=== PATIENT | female | born 1990 | race Native Hawaiian/Other Pacific Islander ===

== ENCOUNTER 2019-01-04 14:10 | Emergency (ER) | payer SELFPAY ==
[~2019-01-04] VITALS: Ht 180.3 cm; Wt 72.6 kg
[2019-01-04 14:13] VITALS: BP 134/69
[2019-01-04] MEDS ORDERED: SODIUM CHLORIDE 0.9% 1,000 ML IVB ONE (14:54)
[2019-01-04] MEDS ORDERED: ONDANSETRON HCL 4 MG/2 ML VIAL IV ONE (15:00)
[2019-01-04] MEDS ORDERED: FAMOTIDINE (10MG/ML) 2ML VL IV ONE (15:00)
[2019-01-04 15:27] LABS: Basophils # (auto) 0.1 uL; Basophils % (auto) 0.8 % (0.0-2.0); Eosinophils # (auto) 0 uL; Eosinophils % (auto) 0.2 % (0.0-7.0); Hemoglobin 15.2 g/dL (12.2-16.2); Lymphocytes # (auto) 1.2 uL; Mean Corpuscular Hemoglobin 29.3 pg (28.0-32.0); Mean Corpuscular Hgb Conc. 33.1 g/dL (32.0-36.0); Mean Corpuscular Volume 88.6 fL (80.0-100.0); Monocytes # (auto) 1.1 uL; Monocytes % (auto) 7.7 % (0.0-12.0); Neutrophils % (auto) 83.3 % (37.0-80.0); Platelet Count (auto) 237 10^3/uL (140-450); Red Blood Cells 5.19 10^6/uL (4.0-5.20); Red Cell Distribution Width 12.9 % (11.8-14.3); White Blood Cell 14.4 10^3/uL (4.4-10.8)
[2019-01-04 15:45] LABS: Albumin 2.9 g/dL (3.4-5.0); BUN/Creatinine Ratio 8.1; Calcium 8.6 mg/dL (8.5-10.1); Magnesium 1.8 mg/dL (1.6-2.6); Potassium 3.5 mmol/L (3.5-5.1)
[2019-01-04 15:47] LABS: Bilirubin, Total 0.6 mg/dL (0.2-1.0); Total Protein 8.6 g/dL (6.4-8.2)
[2019-01-04] MEDS ORDERED: ONDANSETRON HCL 4 MG/2 ML VIAL IV PRN (21:00)
[2019-01-04] MEDS ORDERED: HYDROcodone-ACET 5/325MG TAB PO PRN (21:00)
[2019-01-04] MEDS ORDERED: cefTRIAXone 1GM/50ML D5W 50 ML IV ONE (21:00)
[2019-01-04] MEDS ORDERED: ACETAMINOPHEN 325 MG TAB PO PRN (21:00)
[2019-01-04] MEDS ORDERED: SODIUM CHLORIDE 0.9% 1,000 ML IV SCH (21:00)
[2019-01-04] MEDS ORDERED: DEXTROSE (50%) 50ML SYRG IV PRN (21:00)
[2019-01-04] MEDS ORDERED: TEMAZEPAM 15 MG CAP PO PRN (21:00)
[2019-01-04] MEDS ORDERED: SODIUM CHLORIDE 0.9% 500 ML IV ONE (21:15)
[2019-01-04 21:29] LABS: Amylase 30 U/L (25-115); Lipase 53 U/L (73-393)
[2019-01-04] MEDS ORDERED: NITROGLYCERIN 0.4 MG SL TAB SL PRN (22:00)
[2019-01-04] MEDS ORDERED: FAMOTIDINE 20 MG TAB PO SCH (22:00)
[2019-01-04] MEDS ORDERED: MORPHINE SULF INJ 2 MG/ML SYRINGE 1ML IV PRN (22:00)
[2019-01-05] MEDS ORDERED: ACCU-CHEK COMFORT CURVE STRIP VI SCH
[2019-01-05] MEDS ORDERED: InsuLIN REG 1unit/0.01ml Soln (100units/ml) SC SCH
[2019-01-05] MEDS ORDERED: cefTRIAXone 1GM/50ML D5W 50 ML IV SCH (09:00)
== END 2019-01-04 22:17 | disposition left against medical advice (07) ==
LOC: EDBD 14:10 → ER 14:10
DX: E11.65 Type 2 diabetes mellitus with hyperglycemia (principal); E86.0 Dehydration; J45.909 Unspecified asthma, uncomplicated; F17.210 Nicotine dependence, cigarettes, uncomplicated
CPT/HCPCS: 36415; 76705; 80053; 82010; 82150; 83690; 83735; 85025; 96374; 96375; 99284; J2405; J3490

== ENCOUNTER 2021-01-07 08:10 | Inpatient (IN) | payer MEDICAID, OTHER ==
[~2021-01-07] VITALS: Ht 182.9 cm; Wt 95.2 kg
[2021-01-07 09:45] LABS: Basophils # (auto) 0.1 10 ^3/uL (0-0.2); Basophils % (auto) 0.6 % (0.0-2.0); Eosinophils # (auto) 0.2 10 ^3/uL (0-0.8); Eosinophils % (auto) 1.2 % (0.0-7.0); Hematocrit 44.1 % (36.0-46.0); Hemoglobin 14.5 g/dL (12.2-16.2); Lymphocytes # (auto) 2.2 10 ^3/uL (0.4-5.4); Lymphocytes % (auto) 15.5 % (10.0-50.0); Mean Corpuscular Hemoglobin 29.1 pg (28.0-32.0); Mean Corpuscular Hgb Conc. 32.9 g/dL (32.0-36.0); Mean Corpuscular Volume 88.3 fL (80.0-100.0); Monocytes # (auto) 0.9 10 ^3/uL (0-1.3); Monocytes % (auto) 6.3 % (0.0-12.0); Neutrophils # (auto) 10.6 10 ^3/uL (1.6-8.6); Neutrophils % (auto) 76.4 % (37.0-80.0); Nucleated Red Blood Cells % 0.1 %; Red Blood Cells 4.99 10^6/uL (4.0-5.20); Red Cell Distribution Width 13.1 % (11.8-14.3); White Blood Cell 13.9 10^3/uL (4.4-10.8)
[2021-01-07 10:01] LABS: Albumin 2.7 g/dL (3.4-5.0); Calcium 8.5 mg/dL (8.5-10.1); Potassium 3.9 mmol/L (3.5-5.1)
[2021-01-07 10:05] LABS: BUN/Creatinine Ratio 17.2; Bilirubin, Total 0.6 mg/dL (0.2-1.0); Total Protein 7.7 g/dL (6.4-8.2)
[2021-01-07] MEDS ORDERED: CLINDAMYCIN 600MG IV 50 ML IV ONE (10:30)
[2021-01-07] MEDS ORDERED: SODIUM CHLORIDE 0.9% 1,000 ML IV ONE ×2 (10:30)
[2021-01-07] MEDS ORDERED: cefTRIAXone 1GM/50ML D5W 50 ML IV ONE (10:30)
[2021-01-07] MEDS ORDERED: MORPHINE SULFATE INJECTION 2 MG/ML SYRG IV PRN ×3 (13:00→15:15)
[2021-01-07] MEDS ORDERED: NITROGLYCERIN 0.4 MG SL TAB SL PRN ×2 (13:00→15:15)
[2021-01-07] MEDS ORDERED: ENOXAPARIN SOD 40 MG/0.4 ML SYRINGE SC ONE (15:00)
[2021-01-07] MEDS ORDERED: ACETAMINOPHEN 325 MG TAB PO PRN (15:15)
[2021-01-07] MEDS ORDERED: HYDROcodone-ACET 5/325MG TAB PO PRN (15:15)
[2021-01-07] MEDS ORDERED: LORazepam 0.5 MG TAB PO PRN (15:15)
[2021-01-07] MEDS ORDERED: METOCLOPRAMIDE HCL 5MG/ml INJ 2ml VIAL IV PRN (15:15)
[2021-01-07] MEDS ORDERED: DOCUSATE SOD 100 MG CAP PO PRN (15:15)
[2021-01-07] MEDS ORDERED: ALUM & MAG HYDROX-SIMETH LIQ(MAALOX) 30 ML PO PRN (15:15)
[2021-01-07] MEDS: SODIUM CHLORIDE 0.9% 1,000 ML IV SCH (15:33)
[2021-01-07 15:39] LABS: Cholesterol 142 mg/dL (< 200)
[2021-01-07 15:42] LABS: HDL Cholesterol 41 mg/dL (40-59); LDL Cholesterol 89 mg/dL (< 100); Triglycerides 108 mg/dL (< 150)
[2021-01-07 17:03] VITALS: BP 130/93
[2021-01-07] MEDS ORDERED: METF-370 PO (19:43)
[2021-01-07 22:00] VITALS: BP 127/78
[2021-01-07] MEDS ORDERED: ATORVASTATIN 20 MG TAB PO SCH (22:00)
[2021-01-07] MEDS: CEFEPIME 2 GM in SODIUM CHL 0.9% 50 ML IV SCH (22:02)
[2021-01-08 05:00] VITALS: BP 150/92
[2021-01-08] MEDS: CEFEPIME 2 GM in SODIUM CHL 0.9% 50 ML IV SCH ×2 (05:41→14:24)
[2021-01-08 07:03] LABS: Basophils # (auto) 0.1 10 ^3/uL (0-0.2); Basophils % (auto) 0.9 % (0.0-2.0); Eosinophils # (auto) 0.3 10 ^3/uL (0-0.8); Eosinophils % (auto) 3.9 % (0.0-7.0); Hematocrit 40.1 % (36.0-46.0); Hemoglobin 13.4 g/dL (12.2-16.2); Lymphocytes # (auto) 1.9 10 ^3/uL (0.4-5.4); Lymphocytes % (auto) 21.3 % (10.0-50.0); Mean Corpuscular Hemoglobin 29.4 pg (28.0-32.0); Mean Corpuscular Hgb Conc. 33.5 g/dL (32.0-36.0); Monocytes # (auto) 0.7 10 ^3/uL (0-1.3); Monocytes % (auto) 7.7 % (0.0-12.0); Neutrophils # (auto) 5.9 10 ^3/uL (1.6-8.6); Neutrophils % (auto) 66.2 % (37.0-80.0); Red Blood Cells 4.56 10^6/uL (4.0-5.20); Red Cell Distribution Width 12.6 % (11.8-14.3); White Blood Cell 8.9 10^3/uL (4.4-10.8)
[2021-01-08 07:07] LABS: INR 0.96 (0.9-1.15); Partial Thromboplastin Time 27.2 sec (23.6-33.0)
[2021-01-08 07:28] LABS: Albumin 2.1 g/dL (3.4-5.0); BUN/Creatinine Ratio 25.6; Bilirubin, Total 0.4 mg/dL (0.2-1.0); CRP High Sensitivity 2.6 mg/dL (< 0.3); Calcium 7.9 mg/dL (8.5-10.1); Magnesium 2.6 mg/dL (1.6-2.6); Phosphorus 2.4 mg/dL (2.5-4.90); Total Protein 6.8 g/dL (6.4-8.2); Uric Acid 5.8 mg/dL (2.6-6.0)
[2021-01-08] MEDS: SODIUM CHLORIDE 0.9% 1,000 ML IV SCH (07:40)
[2021-01-08] MEDS: metroNIDAZOLE 500MG/100ML 100 ML IV SCH ×2 (07:59)
[2021-01-08 08:00] VITALS: BP 141/95
[2021-01-08 09:00] VITALS: BP 141/95
[2021-01-08] MEDS ORDERED: BENAZEPRIL HCL 10 MG TAB PO SCH (10:00)
[2021-01-08] MEDS ORDERED: ENOXAPARIN SOD 40 MG/0.4 ML SYRINGE SC SCH (10:00)
[2021-01-08] MEDS ORDERED: ASPirin 81 mg TAB PO SCH (10:00)
[2021-01-08 12:30] VITALS: BP 136/103
[2021-01-08] MEDS ORDERED: DEXTROSE (50%) 50ML SYRG IV PRN (14:00)
[2021-01-08] MEDS ORDERED: hydrALAZINE HCL 20 MG/ML VL IV PRN (14:00)
[2021-01-08] MEDS ORDERED: SODIUM CHLORIDE 0.9% 1,000 ML IV SCH (14:00)
[2021-01-08] MEDS ORDERED: CHOLECALCIFEROL (VITD3) 2,000 UNIT CAP/TAB PO ONE (14:15)
[2021-01-08] MEDS ORDERED: ACCU-CHEK COMFORT CURVE STRIP VI SCH (18:00)
[2021-01-08] MEDS ORDERED: InsuLIN REG 1unit/0.01ml Soln (100units/ml) SC SCH (18:00)
[2021-01-08] MEDS ORDERED: INSULIN LANTUS (GLARGINE) 1 /0.01ml (100units/ml) SC SCH (22:00)
[2021-01-09] MEDS ORDERED: CHOLECALCIFEROL (VITD3) 2,000 UNIT CAP/TAB PO SCH (10:00)
[2021-01-09] MEDS ORDERED: LISINOPRIL 20 MG TAB PO SCH (10:00)
== END 2021-01-08 17:10 | disposition left against medical advice (07) | DRG 720 ==
LOC: ER 08:10 → TELE 12:53 → TELE-CENTR 16:13 → CENTRAL 18:57
PROVIDERS: ADMIT Hospitalist; ATTEND Internal Medicine
DX: A41.9 Sepsis, unspecified organism (principal); E11.621 Type 2 diabetes mellitus with foot ulcer; L97.519 Non-pressure chronic ulcer of other part of right foot with unspecified severity; L03.115 Cellulitis of right lower limb; E66.01 Morbid (severe) obesity due to excess calories; Z20.822 Contact with and (suspected) exposure to COVID-19; E11.69 Type 2 diabetes mellitus with other specified complication; E55.9 Vitamin D deficiency, unspecified; E78.5 Hyperlipidemia, unspecified; F17.210 Nicotine dependence, cigarettes, uncomplicated; M86.8X7 Other osteomyelitis, ankle and foot; Z53.29 Procedure and treatment not carried out because of patient's decision for other reasons; I10 Essential (primary) hypertension; J45.909 Unspecified asthma, uncomplicated; Z68.29 Body mass index [BMI] 29.0-29.9, adult; Z88.0 Allergy status to penicillin; Z82.5 Family history of asthma and other chronic lower respiratory diseases; Z83.3 Family history of diabetes mellitus
CPT/HCPCS: 36415; 73700; 73718; 80053; 80061; 82306; 82728; 83036; 83605; 83735; 83880; 84100; 84443; 84484; 84550; 85025; 85610; 85652; 85730; 86141; 87040; 87077; 87186; 87205; 87426; 96361; 96365; 96366; 96368; G0378; J0696; J3490